=== PATIENT | male | born 1970 | race Caucasian/White ===

== ENCOUNTER 2017-12-29 13:58 | Outpatient (CLI) | payer OTHER | END 2017-12-29 16:44 | disposition home or self-care (01) | LOC: DCC 13:58 | DX: R42 Dizziness and giddiness (principal); R51 Headache; I10 Essential (primary) hypertension; E78.5 Hyperlipidemia, unspecified | CPT/HCPCS: G0463 ==

== ENCOUNTER 2018-01-16 15:56 | Outpatient (CLI) | payer OTHER | END 2018-01-16 16:45 | disposition home or self-care (01) | LOC: DCC 15:56 | DX: R42 Dizziness and giddiness (principal); I10 Essential (primary) hypertension; E78.5 Hyperlipidemia, unspecified | CPT/HCPCS: G0463 ==